=== PATIENT | female | born 1945 | race Two or more races ===

== ENCOUNTER 2018-04-30 08:05 | Inpatient (IN) | payer OTHER ==
[~2018-04-30] VITALS: Ht 162.6 cm; Wt 74.8 kg
[~2018-04-30 08:05] MED LIST: APRESOLINE 10MG10 MG; COREG CR10 MG; DIOVAN160 M1; NORVASC5 MG
== END 2018-05-06 17:19 | disposition home or self-care (01) | DRG 194 ==
LOC: ER 08:05 → MEDJ 16:31
PROC: 3E0F7GC Introduction of Other Therapeutic Substance into Respiratory Tract, Via Natural or Artificial Opening (ICD-10-PCS; principal; 2018-04-30)
PROC: 4A033R1 Measurement of Arterial Saturation, Peripheral, Percutaneous Approach (ICD-10-PCS; 2018-04-30)
PROC: 8E0ZXY6 Isolation (ICD-10-PCS; 2018-04-30)
PROC: BW25Y0Z Computerized Tomography (CT Scan) of Chest, Abdomen and Pelvis using Other Contrast, Unenhanced and Enhanced (ICD-10-PCS; 2018-04-30)
PROC: B246ZZZ Ultrasonography of Right and Left Heart (ICD-10-PCS; 2018-05-04)
DX: J09.X1 Influenza due to identified novel influenza A virus with pneumonia (principal); N13.39 Other hydronephrosis; J18.8 Other pneumonia, unspecified organism; R09.02 Hypoxemia; K44.9 Diaphragmatic hernia without obstruction or gangrene; E11.9 Type 2 diabetes mellitus without complications; I11.9 Hypertensive heart disease without heart failure; Z95.2 Presence of prosthetic heart valve

== ENCOUNTER 2018-07-08 09:16 | Emergency (ER) | payer OTHER ==
[~2018-07-08] VITALS: Ht 157.5 cm; Wt 61.2 kg
[2018-07-08] MEDS ORDERED: CYCLOBENZAPRINE10 MG PO (11:57)
[2018-07-08] MEDS ORDERED: ORPHENADRINE C100 MG PO (11:57)
[2018-07-08] MEDS ORDERED: CELECOXIB100 MG PO (11:57)
== END 2018-07-08 12:53 | disposition home or self-care (01) ==
LOC: ER 09:16
DX: M54.5 Low back pain (principal)

== ENCOUNTER 2018-09-22 10:49 | Outpatient (CLI) | payer OTHER ==
[~2018-09-22 10:49] MED LIST changes: +CELECOXIB100 MG PO; +CYCLOBENZAPRINE10 MG PO; +ORPHENADRINE C100 MG PO
== END 2018-09-22 10:51 | disposition home or self-care (01) ==
LOC: SONOGRAMA 10:49
DX: E04.8 Other specified nontoxic goiter (principal)

== ENCOUNTER 2018-10-04 16:55 | Emergency (ER) | payer OTHER ==
[~2018-10-04] VITALS: Ht 157.5 cm; Wt 60.8 kg
[2018-10-04] MEDS ORDERED: METFORMIN HCL500 MG (17:46)
[2018-10-05] MEDS ORDERED: PEPCID40 MG PO (03:41)
[2018-10-05] MEDS ORDERED: ZOFRAN ODT4 MG PO (03:41)
== END 2018-10-05 07:16 | disposition home or self-care (01) ==
LOC: ER 16:55
DX: K52.89 Other specified noninfective gastroenteritis and colitis (principal); J11.1 Influenza due to unidentified influenza virus with other respiratory manifestations

== ENCOUNTER 2019-07-31 08:52 | Outpatient (CLI) | payer OTHER ==
[~2019-07-31 08:52] MED LIST changes: +METFORMIN HCL500 MG; +PEPCID40 MG PO; +ZOFRAN ODT4 MG PO
== END 2019-07-31 08:53 | disposition home or self-care (01) ==
LOC: SONOGRAMA 08:52
DX: E04.1 Nontoxic single thyroid nodule (principal)

== ENCOUNTER 2019-10-04 05:00 | Day surgery (SDC) | payer OTHER ==
[~2019-10-04 05:00] MED LIST changes: +ADALAT CC30 MG PO; +ASPIR 8181 MG PO; +ATORVASTATIN CA40 MG PO; +CARDESARTAN PO; +CARVEDILOL12.5 M1 PO; +CARVEDILOL12.5 MG; +DOXAZOSIN MESYLA2 MG PO; +HYDRALAZINE HC100 MG PO
[2019-10-04] MEDS ORDERED: PERCOCET 5-3251 EACH PO (08:27)
== END 2019-10-04 12:30 | disposition home or self-care (01) ==
LOC: CIR.AMB 05:00
DX: C73 Malignant neoplasm of thyroid gland (principal)

== ENCOUNTER 2020-06-19 10:00 | Outpatient (CLI) | payer OTHER ==
[~2020-06-19 10:00] MED LIST changes: +PERCOCET 5-3251 EACH PO
== END 2020-06-19 10:17 | disposition home or self-care (01) ==
LOC: NUCLEAR 10:00
PROVIDERS: ATTEND Internal Medicine
DX: I11.9 Hypertensive heart disease without heart failure (principal); I65.23 Occlusion and stenosis of bilateral carotid arteries; I25.10 Atherosclerotic heart disease of native coronary artery without angina pectoris; Z95.4 Presence of other heart-valve replacement

== ENCOUNTER 2020-11-18 09:18 | Outpatient (CLI) | payer OTHER | END 2020-11-18 09:19 | disposition home or self-care (01) | LOC: NUCLEAR 09:18 | PROVIDERS: ATTEND Internal Medicine Cardiovascular Disease | DX: I10 Essential (primary) hypertension (principal) ==

== ENCOUNTER 2021-03-04 08:39 | Outpatient (CLI) | payer OTHER | END 2021-03-04 08:41 | disposition home or self-care (01) | LOC: SONOGRAMA 08:39 | PROVIDERS: ATTEND Internal Medicine | DX: R10.84 Generalized abdominal pain (principal); R39.0 Extravasation of urine ==

== ENCOUNTER 2021-07-28 10:35 | Outpatient (CLI) | payer OTHER | END 2021-07-28 10:37 | disposition home or self-care (01) | LOC: MAMO-SONO 10:35 | PROVIDERS: ATTEND Internal Medicine | DX: N60.11 Diffuse cystic mastopathy of right breast (principal); N60.12 Diffuse cystic mastopathy of left breast; R92.1 Mammographic calcification found on diagnostic imaging of breast; Z12.31 Encounter for screening mammogram for malignant neoplasm of breast ==

== ENCOUNTER 2021-09-15 00:14 | Emergency (ER) | payer OTHER ==
[~2021-09-15] VITALS: Ht 157.5 cm; Wt 62.1 kg
== END 2021-09-15 10:56 ==
LOC: ER 00:14
DX: R00.2 Palpitations (principal); E11.9 Type 2 diabetes mellitus without complications; Z79.84 Long term (current) use of oral hypoglycemic drugs; Z88.8 Allergy status to other drugs, medicaments and biological substances; Z91.011 Allergy to milk products; Z91.013 Allergy to seafood

== ENCOUNTER 2022-04-13 09:39 | Outpatient (CLI) | payer OTHER | END 2022-04-13 09:42 | disposition home or self-care (01) | LOC: NUCLEAR 09:39 | PROVIDERS: ATTEND Internal Medicine Cardiovascular Disease | DX: I49.9 Cardiac arrhythmia, unspecified (principal) ==

== ENCOUNTER 2022-12-10 12:30 | Outpatient (CLI) | payer OTHER | END 2022-12-10 12:37 | disposition home or self-care (01) | LOC: MAMO-SONO 12:30 | PROVIDERS: ATTEND Internal Medicine | DX: N60.11 Diffuse cystic mastopathy of right breast (principal); N60.12 Diffuse cystic mastopathy of left breast; Z12.31 Encounter for screening mammogram for malignant neoplasm of breast ==

== ENCOUNTER 2023-02-19 10:52 | Outpatient (CLI) | payer OTHER | END 2023-02-19 14:27 | disposition home or self-care (01) | LOC: SONOGRAMA 10:52 | PROVIDERS: ATTEND Internal Medicine Gastroenterology | DX: R10.13 Epigastric pain (principal); Z86.010 Personal history of colon polyps ==

== ENCOUNTER 2024-03-24 11:28 | Outpatient (CLI) | payer OTHER | END 2024-03-24 11:30 | disposition home or self-care (01) | LOC: NUCLEAR 11:28 | PROVIDERS: ATTEND Internal Medicine | DX: I48.0 Paroxysmal atrial fibrillation (principal); Z95.2 Presence of prosthetic heart valve ==

== ENCOUNTER 2024-08-28 11:49 | Outpatient (CLI) | payer OTHER | END 2024-08-28 11:57 | disposition home or self-care (01) | LOC: MAMO-SONO 11:49 | PROVIDERS: ATTEND Internal Medicine | DX: R22.1 Localized swelling, mass and lump, neck (principal); E03.8 Other specified hypothyroidism; E04.2 Nontoxic multinodular goiter; C73 Malignant neoplasm of thyroid gland; Z12.39 Encounter for other screening for malignant neoplasm of breast; Z12.31 Encounter for screening mammogram for malignant neoplasm of breast ==

== ENCOUNTER → 2025-04-30 | Outpatient (CLI) | payer OTHER | END | disposition home or self-care (01) | LOC: TOM 16:33 | PROVIDERS: ATTEND Internal Medicine Pulmonary Disease | DX: R06.02 Shortness of breath (principal); R91.8 Other nonspecific abnormal finding of lung field ==